=== PATIENT | male | born 1970 | race Caucasian/White ===

== ENCOUNTER 2020-10-18 17:21 | Emergency (ER) | payer OTHER ==
[~2020-10-18] VITALS: Ht 170.2 cm; Wt 86.2 kg
[2020-10-18 17:47] VITALS: BP_SYST 151
--- NOTE | 2020-10-18 18:00 | NUR ---
Patient triaged and placed in waiting room. VSS and patient appears in no acute distress at this time. Accompanied by self, awaiting available bed, and MD notified of need for MSE.
--- NOTE | 2020-10-18 18:05 | NUR ---
Pt brought by self, A&Ox4, pt presents to ER with L lower abdominal pain and distention,skin pink and warm, cap refill <3, VSS, respirations even and unlabored.
--- NOTE | 2020-10-18 18:28 | NUR ---
Dr Arreguin evaluating patient in the tent
[2020-10-18 19:06] LABS: BASOPHILS # (AUTO) 0.1 K/uL (0.0-0.2); BASOPHILS % (AUTO) 1.1 % (0.0-2.0); EOSINOPHILS # (AUTO) 0.1 K/uL (0.0-0.4); EOSINOPHILS % (AUTO) 1.7 % (0.0-4.0); HEMATOCRIT 36.6 % (36-54); HEMOGLOBIN 12.7 g/dL (14.0-18.0); LYMPHOCYTES # (AUTO) 0.7 K/uL (1.0-5.5); LYMPHOCYTES % (AUTO) 13.1 % (20.5-51.5); MEAN CORPUSCULAR HEMOGLOBIN 32 pg (27-31); MEAN CORPUSCULAR HGB CONC 35 % (32-36); MEAN CORPUSCULAR VOLUME 93 fL (79.0-98.0); MONOCYTES # (AUTO) 0.4 K/uL (0.0-1.0); MONOCYTES % (AUTO) 7.5 % (1.7-9.3); NEUTROPHILS # (AUTO) 3.9 K/uL (1.8-7.7); NEUTROPHILS % (AUTO) 76.6 % (40.0-70.0); PLATELET COUNT (AUTO) 136 K/uL (130-430); RED BLOOD CELL COUNT(AUTO) 3.94 MIL/uL (4.2-6.2); RED CELL DISTRIBUTION WIDTH 14.2 % (9.0-15.0)
--- NOTE | 2020-10-18 19:11 | NUR ---
Patient to ER bed H2 to gown for evaluation. Side rails up.
--- NOTE | 2020-10-18 19:17 | NUR ---
Report given to Angie RENNER
--- NOTE | 2020-10-18 19:18 | NUR ---
received report from JUD Montanez for continuation of care.
[2020-10-18 19:22] LABS: ALBUMIN 2.9 g/dL (3.4-4.8); CREATININE 1.03 mg/dL (0.55-1.30); POTASSIUM 4.5 mmol/L (3.5-5.1); TOTAL BILIRUBIN 1.4 mg/dL (0.0-1.0)
--- NOTE | 2020-10-18 19:38 | NUR ---
URINE SAMPLE COLLECTED MID STREAM CLEAN CATCH SENT TO LAB AWAITNG RESULTS
[2020-10-18 20:03] LABS: BILIRUBIN,URINE NEGATIVE (NEGATIVE); BLOOD, URINE 3+ (NEGATIVE); CLARITY/URINE CLEAR (CLEAR); COLOR,URINE YELLOW (YELLOW); GLUCOSE,URINE NEGATIVE (NEGATIVE); KETONES,URINE NEGATIVE (NEGATIVE); LEUKOCYTE ESTERASE ,URINE 1+ (NEGATIVE); NITRITE, URINE NEGATIVE (NEGATIVE); PH,URINE 5.5 (5.0-8.0); PROTEIN URINE NEGATIVE (NEGATIVE); UROBILINOGEN,URINE 0.2 (0.2-1.0)
[2020-10-18 20:13] LABS: BACTERIA,URINE FEW /HPF (None Seen); MUCUS,URINE None Seen /LPF (None Seen); RBC,URINE 0-3 /HPF (0-3)
--- NOTE | 2020-10-18 20:20 | NUR ---
Insulin 14 units and morphine given to patient IVP.
--- NOTE | 2020-10-18 20:30 | NUR ---
Pt taken to X ray for imaging.
[2020-10-18] MEDS: MORPHINE 4 MG/ML INJ. SYRINGE IVP ONE (20:35)
[2020-10-18] MEDS: INSULIN REGULAR, HUMAN 10 UNITS/0.1 ML INJ IVP ONE (20:35)
--- NOTE | 2020-10-18 21:20 | NUR ---
POC glucose check 60. made aware. AMP of D5 given to pt.
[2020-10-18] MEDS ORDERED: DEXTROSE 50% JECT 50 ML DISP.SYRIN ONE (21:26)
--- NOTE | 2020-10-18 21:27 | NUR ---
blood glucose 60 md eleanor hardwick
[2020-10-18] MEDS: DEXTROSE 50% JECT 50 ML DISP.SYRIN IVP ONE (21:29)
--- NOTE | 2020-10-18 22:00 | NUR ---
Glucose accucheck 165
--- NOTE | 2020-10-18 22:40 | NUR ---
Lab called for critical value of 497 at 1937. Pt medicated with insulin of 14units. Lab was called to run blood for glucose check again due to patient becoming hypoglycemic. Pt last glucose check was 133 at 2229.
--- NOTE | 2020-10-18 22:40 | NUR ---
Lab reported last glucose check at 184 was incorrect and now reports a glucose of 164.
--- NOTE | 2020-10-19 01:00 | NUR ---
BG 171
[2020-10-19] MEDS: NS 500 ML IV ONE (01:30)
[2020-10-19 02:11] VITALS: BP_SYST 151
--- NOTE | 2020-10-19 02:11 | NUR ---
Patient given written and verbal discharge instructions and verbalizes understanding. ER MD discussed with patient the results and treatment provided. Patient in stable condition. ID arm band removed. IV catheter removed intact and dressing applied, no active bleeding. Rx of macrobid and ibuprofen given. Patient educated on pain management and to follow up with PMD. Opportunity for questions provided and answered. Medication side effect fact sheet provided.
== END 2020-10-19 02:11 | disposition home or self-care (01) ==
LOC: SED 17:21
DX: N39.0 Urinary tract infection, site not specified (principal); E87.1 Hypo-osmolality and hyponatremia; R10.9 Unspecified abdominal pain
CPT/HCPCS: 36415; 71045; 74176; 76376; 81000; 80053; 82009; 82962; 83690; 85025; 87086; 96374; 96375; 99285; J1815; J2270; J7040